=== PATIENT | male | born 1970 | race Caucasian/White ===

== ENCOUNTER 2024-03-30 09:20 | Emergency (ER) | payer SELFPAY ==
[2024-03-30 09:22] VITALS: BP 176/123; PULSE 102; RESP 16; TEMP 36.7; O2SAT 94; BMI 24.1
--- NOTE | 2024-03-30 09:24 | XR_ITS ---
WS: [id number] Examination: XR hand RT min 3V* 31320 Reason for Exam: trauma Date: 03/30/2024 Comparison: None. Findings: There is prominent dorsal soft tissue swelling. What may represent a laceration near the carpal metac arpal junction is suspected. The bone density is maintained. There is no displaced fracture. There is no dislocation. Spurring and chronic change is identified dominantly at the third distal interphalangeal joint. XR/XR hand RT min 3V* [id number] Impression: There is dorsal soft tissue swelling and suspected proximal laceration No displaced fracture or dislocation is identified.
--- NOTE | 2024-03-30 09:29 | CT_ITS ---
WS: [id number] CT RIGHT HAND WITH CONTRAST HISTORY: infection Technique: All CT scans at [facility] use at least one of these dose optimization techniques: automated exposure control; mA and/or kV adjustment per patient size (includes targeted exams where dose is matched to clinical indication); or iterative reconstruction. DLP: 306.40 mGy.cm COMPARISON: Hand radiograph 03/30/2024 Contrast: Omnipaque 350; 100 mL. There is a large amount of soft tissue infiltration of edema involving the dorsum of the hand at the level of the metacarpals. There is no focal well-defined fluid collection. No foreign body is identif ied. No acute fracture. CT/CT hand RT w con [id number] IMPRESSION: 1. Large amount of soft tissue edema and cellulitis over the dorsal hand. Pred ominantly at the level of the metacarpals. 2. No focal collection or abnormal enhancement. No abscess identified. 3. No osseous injury.
[2024-03-30] MEDS: ketorolac 30 mg/mL INJ IVP (09:41)
[2024-03-30] MEDS: tetanus-dipt-pertussis 0.5 mL SDV IM (09:45)
[2024-03-30] MEDS: ceFAZolin 1,000 mg SDV 1000 MG IVP (09:47)
[2024-03-30 09:49] LABS: Basophils % 0.4 %; Eosinophils % 0.4 %; Hematocrit 45.4 % (37-53); Lymphocytes # 1.1 10^3/uL (0.8-4.8); Lymphocytes % 15.8 %; Mean Corpuscular HGB Conc 34.6 g/dL (30-55); Mean Corpuscular Hemoglobin 34.4 pg (27-33); Mean Corpuscular Volume 99.3 fl (82-101); Mean Platelet Volume 9.3 fL (7.4-10.4); Monocytes # 0.8 10^3/uL (0.2-0.9); Monocytes % 11.3 %; Neutrophils # 4.87 10^3/uL (1.8-7.7); Neutrophils % 71.8 %; Nucleated Red Blood Cells % 0 %; Platelet Count 227 10^3/cmm (157-399); Red Blood Count 4.57 10^6/uL (3.85-5.65); Red Cell Distribution Width 12.2 % (12.1-15.1); White Blood Count 6.79 10^3/uL (3.29-11.43)
[2024-03-30 10:02] VITALS: BP 157/93; PULSE 97; O2SAT 97
[2024-03-30 10:07] LABS: Alanine Aminotransferase 22 U/L (0-41); Albumin Level 4.6 g/dL (3.5-5.2); Alkaline Phosphatase 66 U/L (40-130); Anion Gap 16.6 (5-19); Aspartate Amino Transferase 36 U/L (0-40); Blood Urea Nitrogen 12 mg/dL (6-20); Calcium 9.8 mg/dL (8.5-10.5); Carbon Dioxide 27 mmol/L (22-29); Chloride 104 mmol/L (98-107); Globulin 3.1 g/dL (1.3-4.6); Glomerular Filtration Rate 101.5 mL/min (90-130); Glucose 111 mg/dL (65-115); Osmolality Calculated 296 mOsm/kg (285-295); Potassium 4.6 mmol/L (3.5-5.1); Sodium 143 mmol/L (136-145); Total Bilirubin 0.5 mg/dL (0.15-1.2); Total Protein 7.7 g/dL (6.6-8.7)
[2024-03-30 10:08] LABS: Lactic Sepsis W/Reflex 1.2 mmol/L (0.5-2.2)
--- NOTE | 2024-03-30 10:11 | ED_ITS ---
HPI - Wound/Laceration 2 General: Chief Complaint: Wound/Laceration Stated Complaint: Right hand chain saw cut Time Seen by Provider: 03/30/24 09:24 History of Present Illness: 53-year-old male presents to the emergen cy room with complaints of a cut on his hand that he received 3 days ago he was working on a ladder and a chainsaw fell off it was not running at the time he got a cut across the dorsum of his right hand just distal to the wrist. He has been treating the wound at home trying to keep it clean with peroxide. Has had some serous oozing from it it has been continuous. He has developed a significantly more swelling he denies any fever sweats or chills. Patient is not diabetic unsure of his last tetanus Associated symptoms: Denies chills or fever(s) Related Data Previous Rx's Medication Instructions Recorded diclofenac sodium 75 mg 75 mg PO Q12H PRN pain #20 tabs 03/30/24 tablet,delayed release sulfamethoxazole 800 2 tab PO BID 7 days #28 tabs 03/30/24 mg-trimethoprim 160 mg tablet (Bactrim DS) Allergies Allergy/AdvReac Type Severity Reaction Status Date / Time No Known Allergies Allergy Verified 03/30/24 09:33 Review of Systems 2 Const: Denies: fever(s) or chills Card: Denies: chest pain Resp: Denies: dyspnea GI: Denies: abdominal pain : Denies: dysuria, urinary frequency or urinary urgency Musc: Denies: neck pain or back pain Skin/Breast: Denies: rash Physical Exam 2 Const: COMMON NORMALS: no acute distress GENERAL APPEARANCE: cooperative and comfortable ORIENTATION/CONSCIOUSNESS: Yes awake, Yes oriented to person, Yes oriented to place and Yes oriented to time HENMT: COMMON NORMALS: normocephalic, atraumatic and hearing grossly normal bilaterally HEAD & SCALP: normocephalic and atraumatic Resp: COMMON NORMALS: normal respiratory effort, No retractions, No use of accessory muscles and clear to auscultation bilaterally AUSCULTATION: clear to auscultation bilaterally Cardio: COMMON NORMALS: regular rate, regular rhythm and No murmurs present (Cardio) RATE: regular rate RHYTHM: regular rhythm GI: COMMON NORMALS: Soft to palpation and No hepatosplenomegaly present A USCULTATION: Yes normoactive bowel sounds PALPATION: Yes Soft to palpation, No Tenderness to palpation present (GI), No Guarding due to palpation present (GI) and Yes No hepatosplenomegaly present Extremity: COMMON NORMALS: normal to inspection, capillary refill normal, no clubbing, cyanosis or edema, no calf tenderness and no pedal edema OTHER: Full-thickness laceration on the dorsum of the right hand just distal to the wrist crease there is a partial-thickness laceration Arzate first and second fingers. There is already some granulation at the edges of the wound on the dorsum of the hand there is dry there is a bit of serous drain at its edges. No purulent drainage there is significant swelling across the dorsum of the hand but no induration. Patient has full range of motion and normal sensation and capillary refill in the hand and fingertips. Neuro: SENSORIUM/ORIENTATION: Yes oriented to person, Yes oriented to place and Yes oriented to time Skin: COMMON NORMALS: no rashes or lesions noted GENERAL SKIN EXAM: no rashes or lesions noted Course 2 Vital Signs: Vital signs: Vital Signs Temperature 98.1 F 03/30/24 09:22 Pulse Rate 104 H 03/30/24 11:28 Respiratory Rate 16 03/30/24 09:22 Blood Pressure 185/107 03/30/24 11:28 Pulse Oximetry 99 03/30/24 11:28 Oxygen Delivery Me thod Room Air 03/30/24 11:08 MDM - Wound/Laceration Medical Decision Making CT did not show any abscess formation and definitely both clinically at the bedside and on the CT as a cellulitis. The cut on the back of his hand is full- thickness but does not include any tendons. Has been open for 3 days now I did not repair the laceration as it is most surely colonized by now primary closure would likely precipitate formation of abscess. Apply [id number] topical antibiotic ointment start on oral antibiotics. He should have follow-up with orthopedics tomorrow. Recheck if he has any worsening or develops any fever. Patient was hesitant to commit to follow-up he feels that just taking the oral antibiotic should be adequate and he states he does not feel like he really needs it and follow-up I expressed to him that I was very worried about making sure this is followed up to ensure that he has improvement that it is not worsening or causing any dysfunction. If he has any change or worsening of function or fever he should return immediately or have case management make an appointment for follow-up. Lab Data 03/30/24 09:37 03/30/24 09:37 Radiology Impressions Hand X-Ray 03/30/24 09:24 Impression: There is dorsal soft tissue swelling and suspected proximal laceration No displaced fracture or dislocation is identified. Hand CT 03/30/24 09:29 IMPRESSION: 1. Large amount of soft tissue edema and cellulitis over the dorsal hand. Predominantly at the level of the metacarpals. 2. No focal collection or abnormal enhancement. No abscess identified. 3. No osseous injury. Laboratory Results WBC 6.79 10^3/uL (3.29-11.43) 03/30/24 09:37 RBC 4.57 10^6/uL (3.85-5.65) 03/30/24 09:37 Hgb 15.70 g/dL (11.27-16.99) 03/30/24 09:37 Hct 45.4 % (37-53) 03/30/24 09:37 MCV 99.3 fl (82-101) 03/30/24 09:37 MCH 34.4 pg (27-33) H 03/30/24 09:37 MCHC 34.6 g/dL (30-55) 03/30/24 09:37 RDW 12.2 % (12.1-15.1) 03/30/24 09:37 Plt Count 227 10^3/cmm (157-399) 03/30/24 09:37 MPV 9.3 fL (7.4-10.4) 03/30/24 09:37 Neut % (Auto) 71.8 % 03/30/24 09:37 Lymph % (Auto) 15.8 % 03/30/24 09:37 [place] % (Auto) 11.3 % 03/30/24 09:37 Eos % (Auto) 0.4 % 03/30/24 09:37 Baso % (Auto) 0.4 % 03/30/24 09:37 Neut # (Auto) 4.87 10^3/uL (1.8-7.7) 03/30/24 09:37 Lymph # (Auto) 1.1 10^3/uL (0.8-4.8) 03/30/24 09:37 [place] # (Auto) 0.8 10^3/uL (0.2-0.9) 03/30/24 09:37 Eos # (Auto) 0.0 10^3/uL (0.0-0.8) 03/30/24 09:37 Baso # (Auto) 0.0 10^3/uL (0.0-0.1) 03/30/24 09:37 Nucleated RBC % (auto) 0 % 03/30/24 09:37 Nucleated RBCs # 0.0 /100WBC 03/30/24 09:37 Sodium 143 mmol/L (136-145) 03/30/24 09:37 Potassium 4.6 mmol/L (3.5-5.1) 03/30/24 09:37 Chloride 104 mmol/L (98-107) 03/30/24 09:37 Carbon Dioxide 27 mmol/L (22-29) 03/30/24 09:37 Anion Gap 16.6 (5-19) 03/30/24 09:37 BUN 12 mg/dL (6-20) 03/30/24 09:37 Creatinine 0.8 mg/dL (0.7-1.2) 03/30/24 09:37 GFR Calculation 101.5 mL/min (90-130) 03/30/24 09:37 Glucose 111 mg/dL (65-115) 03/30/24 09:37 Calculated Osmolality 296 mOsm/kg (285-295) H 03/30/24 09:37 Lactic Acid 1.2 mmol/L (0.5-2.2) 03/30/24 09:37 Calcium 9.8 mg/dL (8.5-10.5) 03/30/24 09:37 Total Bilirubin 0.5 mg/dL (0.15-1.2) 03/30/24 09:37 AST 36 U/L (0-40) 03/30/24 09:37 ALT 22 U/L (0-41) 03/30/24 09:37 Alkaline Phosphatase 66 U/L (40-130) 03/30/24 09:37 Total Protein 7.7 g/dL (6.6-8.7) 03/30/24 09:37 Albumin 4.6 g/dL (3.5-5.2) 03/30/24 09:37 Globulin 3.1 g/dL (1.3-4.6) 03/30/24 09:37 All radiology interpretation(s) finalized by discharge Discharge Plan Discharge Patient Disposition: Home Clinical Impression: Cellulitis of dorsum of hand, Laceration Condition: Stable Prescriptions: New Bactrim DS 800-160 mg tablet 2 tab PO BID 7 Days Qty: 28 0RF diclofenac sodium 75 mg tablet,delayed release (DR/EC) 75 mg PO Q12H PRN (Reason: pain) Qty: 20 0RF Discharge Orders: Discharge ED (Routine); Ordered 03/30/24 Ordered By: Kenneth Perea Patient Instructions: Opioid Safety, Pain Management Activity Restrictions/Additional Instructions: Thank you for choosing [facility] for your healthcare needs today. It is very important that you follow up as instructed or that you return to the Emergency Department should you have concerns or if your condition changes or worsens in any way. You were seen today for swelling in your right hand. There was evidence of cellulitis no evidence of any deep tissue abscesses. Will start you on oral antibiotics give the pain medications elevate. Since wound has been open for 3 days we will have to allow it to heal by secondary intent since it is likely colonized at this point and suturing will increase the risk of developing an abscess. Case management make arrangements for follow-up. Coding Level of Care Code ED [employer]er [employer]acer for Paul Yuan
[2024-03-30] MEDS: iohexol 350 mg/mL 500 mL Btl (per mL) IV (10:19)
[2024-03-30 11:08] VITALS: BP 150/98; PULSE 80; O2SAT 99
[2024-03-30 11:28] VITALS: BP 185/107; PULSE 104; O2SAT 99
--- NOTE | 2024-03-31 08:46 | DCPLANNER ---
messaged ortho for er f/u
== END 2024-03-30 11:29 | disposition home or self-care (01) ==
PROVIDERS: Emergency Provider Family Medicine
DX: S61.411A Laceration without foreign body of right hand, initial encounter (principal); L03.113 Cellulitis of right upper limb; W29.3XXA Contact with powered garden and outdoor hand tools and machinery, initial encounter; Z23 Encounter for immunization
CPT/HCPCS: 36415; 73130; 73201; 80053; 83605; 85025; 87040; 90715; 96374; 96375; 99285; J0690; J1885